=== PATIENT | male | born 1965 | race Caucasian/White ===

== ENCOUNTER 2024-09-10 15:59 | Inpatient (IN) | payer BC ==
[2024-09-10 17:53] VITALS: BMI 37.7
[2024-09-10] MEDS ORDERED: Glucagon 1 MG/ML KIT IM PRN (18:07)
[2024-09-10] MEDS ORDERED: Insulin Lispro 100 UNIT/ML 10 ML VIAL SC PRN ×2 (18:07)
[2024-09-10] MEDS ORDERED: Acetaminophen 325 MG TAB PO PRN (18:07)
[2024-09-10] MEDS ORDERED: Ondansetron PF 4 MG/2 ML Vial IVP PRN (18:07)
[2024-09-10] MEDS ORDERED: Dextrose 50% Abboject 50 ML SYRINGE SLOW IVP PRN (18:07)
[2024-09-10] MEDS ORDERED: Dextrose 5% in Water 1,000 ML IV PRN (18:07)
[2024-09-10] MEDS: Rosuvastatin 20 MG TAB PO SCH (20:08)
[2024-09-10] MEDS: Lisinopril 2.5 MG TAB PO SCH (20:08)
[2024-09-11 04:29] LABS: #Basophils 0.08 10x3/uL (0.0-0.2); %Basophils 0.9 % (0.0-1.0); %Eosinophils 2.9 % (0.0-10.0); %Lymphocytes 20.8 % (21.0-51.0); %Monocytes 11.7 % (0.0-10.0); Hematocrit 44.7 % (42.0-52.0); Hemoglobin 14.9 g/dL (14.0-18.0); Mean Corpuscular HGB CONC 33.3 g/dL (32.0-36.0); Mean Corpuscular Hemoglobin 31.6 pg (27.0-31.0); Mean Corpuscular Volume 94.7 fL (78.0-98.0); Platelet Count 240 10x3/uL (130-400); RBC Distribution Width 13.1 % (11.5-14.5); Red Blood Cell (RBC) Count 4.72 mill/uL (4.70-6.10)
[2024-09-11 05:01] LABS: Anion Gap 12 mmol/L (10-20); BUN (Urea Nitrogen) 15 mg/dL (8.4-25.7); Calc. Creatinine Clearance 127 mL/min (70-130); Calcium 8.8 mg/dL (7.8-10.44); Carbon Dioxide 29 mmol/L (22-29); Chloride 105 mmol/L (98-107); Estimated GFR 82; Glucose 76 mg/dL (70-105); Potassium 3.7 mmol/L (3.5-5.1); Sodium 142 mmol/L (136-145)
[2024-09-11] MEDS: glipiZIDE 10 MG TAB PO SCH (08:03)
[2024-09-11] MEDS: Aspirin 325 mg Enteric Coated Tablet PO SCH (08:03)
[2024-09-11] MEDS: Enoxaparin 40 MG (0.4 mL) SYRINGE SC SCH (08:03)
[2024-09-11 17:32] LABS: Prothrombin Time 12.8 sec (12.0-14.7)
[2024-09-11] MEDS: AcetaZOLAMIDE ER 500 MG CAP PO SCH (17:45)
[2024-09-12 05:18] LABS: %Eosinophils 2.6 % (0.0-10.0); %Lymphocytes 17.9 % (21.0-51.0); %Monocytes 10.5 % (0.0-10.0); %Neutrophils 67.4 % (42.0-75.0); Hematocrit 44.1 % (42.0-52.0); Mean Platelet Volume 10.2 fL (7.4-10.4); Platelet Count 242 10x3/uL (130-400); RBC Distribution Width 13.1 % (11.5-14.5); Red Blood Cell (RBC) Count 4.69 mill/uL (4.70-6.10)
[2024-09-12 05:34] LABS: Anion Gap 10 mmol/L (10-20); BUN (Urea Nitrogen) 15 mg/dL (8.4-25.7); Calc. Creatinine Clearance 115 mL/min (70-130); Calcium 8.7 mg/dL (7.8-10.44); Carbon Dioxide 26 mmol/L (22-29); Chloride 107 mmol/L (98-107); Estimated GFR 73; Glucose 95 mg/dL (70-105); Potassium 3.9 mmol/L (3.5-5.1); Sodium 139 mmol/L (136-145)
[2024-09-12] MEDS ORDERED: Sodium Bicarbonate 2.5 MEQ/5 ML SDV ONE (07:24)
[2024-09-12] MEDS ORDERED: Lidocaine 1% PF 5 ML VIAL ONE (08:15)
[2024-09-12] MEDS: AcetaZOLAMIDE ER 500 MG CAP PO SCH (09:14)
[2024-09-12 10:26] LABS: CSF, Glucose 69 mg/dl (40-70)
[2024-09-12 11:02] LABS: CSF Source CSF; Clarity Hazy (Clear); Tube # 4
[2024-09-12 13:22] LABS: Color Of CSF Supernatant PINK (Colorless); Tube # 2; Unspun CSF Color RED (Colorless)
[2024-09-12 13:31] LABS: CSF, Protein 167.5 mg/dL (15-40)
[2024-09-12 15:51] VITALS: BP 114/77; TEMP 98.1
[2024-09-14 01:35] LABS: HSV 1 - DNA, CSF Negative (Negative); HSV 2 - DNA, CSF Negative (Negative)
[2024-09-15 12:36] LABS: West Nile Virus IgG Ab - CSF Negative (Negative); West Nile Virus IgM Ab - CSF Negative (Negative)
== END 2024-09-12 17:15 | disposition home or self-care (01) | DRG 65 ==
LOC: 2SE 17:44
PROVIDERS: ADMIT Internal Medicine; ATTEND Internal Medicine
PROC: 009U3ZX Drainage of Spinal Canal, Percutaneous Approach, Diagnostic (ICD-10-PCS; principal; 2024-09-12)
PROC: B01BZZZ Fluoroscopy of Spinal Cord (ICD-10-PCS; 2024-09-12)
DX: I63.81 Other cerebral infarction due to occlusion or stenosis of small artery (principal); A86 Unspecified viral encephalitis; E11.9 Type 2 diabetes mellitus without complications; I10 Essential (primary) hypertension; E78.00 Pure hypercholesterolemia, unspecified; G93.2 Benign intracranial hypertension; Z79.85 Long-term (current) use of injectable non-insulin antidiabetic drugs; Z88.5 Allergy status to narcotic agent; Z79.84 Long term (current) use of oral hypoglycemic drugs; Z79.899 Other long term (current) drug therapy
CPT/HCPCS: 36415; 36416; 62270; 72110; 80048; 82945; 84157; 85025; 85610; 85730; 86612; 86635; 86698; 86788; 86789; 87070; 87205; 87252; 87498; 87529; 87798; 89051; J1650; J1815